=== PATIENT | female | born 1945 | race Caucasian/White ===

== ENCOUNTER 2016-12-23 20:08 | Emergency (ER) | payer OTHER ==
[~2016-12-23] VITALS: Ht 170.2 cm; Wt 85.9 kg
[2016-12-23 20:11] VITALS: Ht 170.2 cm; Wt 85.9 kg
[2016-12-23 20:22] VITALS: O2SAT 96
--- NOTE | 2016-12-23 20:52 | EMERGENCY ROOM VISIT NOTE ---
History Report prepared by Diamond: Tina Dudley Under the Supervision of: Dr. Simeon Jennings M.D. First contact with patient: 20:25 Chief Complaint: RESPIRATORY PROBLEMS Stated Complaint: HARD TO BREATH Nursing Triage Summary: sob worse when moving History of Present Illness The patient is a 71 year old female who presents to the Emergency Room with complaints of persistent shortness of breath that began one week ago. The patient states that she just moved to the area from [place]. She states that over the past week she has been experiencing shortness of breath with exertion. The patient states that six weeks ago she flew 4 hours from [place] to [facility] and then a 1 hour flight from [facility] to [place]. She reports a history of previous abnormal EKGs with previous chest pain, but denies any chest pain today. The patient states that she has not followed up with Cardiology within the past several months. Today, she associates a dull headache with her symptoms. 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 She states that she has had diarrhea for the past three days. The patient denies being a current smoker, noting that she quit 8 years ago. She denies any fever, chills, cough, congestion, chest pain, nausea , vomiting, melena, hematochezia, burning with urination, or lower extremity swelling. Source of History: patient Onset: one week ago Position: other (global) Quality: other (shortness of breath) Timing: other (persistent) Associated Symptoms: + headache (dull), + diarrhea, No fevers, No chills, No cough, No chest pain, No nausea, No vomiting, No melena, No hematochezia, No urinary symptoms Review of Systems See HPI for pertinent positives and negatives. A total of ten systems were reviewed and were otherwise negative. Past Medical & Surgical Medical Problems: (1) Depression (2) Pneumonia Family History Cancer Lung disease Social History Smoking Status: Former Smoker Smokeless Tobacco Use: No Alcohol Use: occasionally Marital Status: Housing Status: lives with significant other Occupation Status: retired Current/Historical Medications Scheduled Albuterol (Ventolin Hfa), 2 PUFFS INH QID Azithromycin (Azithromycin), 1 TAB PO DAILY Citalopram Hydrobromide (Celexa), 20 MG PO DAILY Lactobacillus (Probiotic), 1 CAP PO DAILY Levothyroxine Sodium (Levothyroxine Sodium), 25 MCG PO DAILY Prednisone (Prednisone), 0 PO DAILY [Candibactin], 1 TAB PO DAILY [Womens Essential], 1 PKT PO DAILY Allergies Coded Allergies: No Known Allergies (Unverified , 12/23/16) Physical Exam Vital Signs Date Time Temp Pulse Resp B/P (MAP) Pulse Ox O2 Delivery O2 Flow Rate FiO2 12/23/16 23:41 36.6 76 20 131/75 99 12/23/16 22:13 72 21 12/23/16 22:08 71 15 12/23/16 22:03 72 16 12/23/16 22:01 109/54 12/23/16 21:58 71 11 12/23/16 21:53 73 18 12/23/16 21:48 77 17 12/23/16 21:43 71 26 12/23/16 21:38 72 20 12/23/16 21:33 76 22 12/23/16 21:31 122/70 12/23/16 21:28 70 17 12/23/16 21:23 69 15 12/23/16 21:18 73 17 12/23/16 21:13 70 13 12/23/16 21:08 71 20 12/23/16 21:03 70 26 12/23/16 20:58 70 20 12/23/16 20:53 77 20 12/23/16 20:48 76 17 98 12/23/16 20:43 76 23 97 12/23/16 20:38 76 21 97 12/23/16 20:33 72 16 97 12/23/16 20:31 105/75 12/23/16 20:28 74 17 96 12/23/16 20:27 70 12/23/16 20:23 96 Room Air 12/23/16 20:22 96 Room Air 12/23/16 20:21 127/75 12/23/16 20:11 36.6 72 18 129/82 96 Room Air Physical Exam GENERAL: Awake, alert, well-appearing, in no distress HENT: Normocephalic, atraumatic. Dry mucous membranes. EYES: Normal conjunctiva. Sclera non-icteric. NECK: Supple. No nuchal rigidity. FROM. No JVD. RESPIRATORY: Scant isolated wheezes. otherwise clear. CARDIAC: Regular rate, normal rhythm. Extremities warm and well perfused. Pulses equal. ABDOMEN: Soft, non-distended. No tenderness to palpation. No rebound or guarding. No masses. RECTAL: Deferred. MUSCULOSKELETAL: Chest examination reveals no tenderness. The back is symmetrical on inspection without obvious abnormality. There is no CVA tenderness to palpation. No joint edema. LOWER EXTREMITIES: Calves are equal size bilaterally and non-tender. No edema. No discoloration. NEURO: Normal sensorium. No sensory or motor deficits noted. SKIN: No rash or jaundice noted. Medical Decision & Procedures ER Provider Diagnostic Interpretation: X-ray: Per my interpretation, radiologist review. CHEST ONE VIEW PORTABLE HISTORY: 71 years-old Female acute shortness of breath COMPARISON: None available TECHNIQUE: Portable upright AP view of the chest FINDINGS: Cardiomediastinal and hilar silhouettes are within normal limits. There is atherosclerosis of the aorta. No pneumothorax, pleural effusion or focal airspace consolidation. Bones appear to be grossly intact. IMPRESSION: No acute cardiopulmonary process. The above report was generated using voice recognition software. It may contain grammatical, syntax or spelling errors. Electronically signed by: Cortes Pierre M.D. 12/23/2016 9:19 PM Dictated Date/Time: 12/23/2016 9:18 PM Laboratory Results 12/23/16 20:55 Red Blood Count 4.31, Mean Corpuscular Volume 89.8, Mean Corpuscular Hemoglobin 30.2, Mean Corpuscular Hemoglobin Concent 33.6, Mean Platelet Volume 10.1, Neutrophils (%) (Auto) 43.3, Lymphocytes (%) (Auto) 44.8, Monocytes (%) (Auto) 8.8, Eosinophils (%) (Auto) 2.4, Basophils (%) (Auto) 0.4, Neutrophils # (Auto) 3.04, Lymphocytes # (Auto) 3.15, Monocytes # (Auto) 0.62, Eosinophils # (Auto) 0.17, Basophils # (Auto) 0.03 12/23/16 20:55 Test 12/23/16 20:55 White Blood Count 7.03 K/uL (4.8-10.8) Red Blood Count 4.31 M/uL (4.2-5.4) Hemoglobin 13.0 g/dL (12.0-16.0) Hematocrit 38.7 % (37-47) Mean Corpuscular Volume 89.8 fL (80-100) Mean Corpuscular Hemoglobin 30.2 pg (25-34) Mean Corpuscular Hemoglobin Concent 33.6 g/dl (32-36) Platelet Count 258 K/uL (130-400) Mean Platelet Volume 10.1 fL (7.4-10.4) Neutrophils (%) (Auto) 43.3 % Lymphocytes (%) (Auto) 44.8 % Monocytes (%) (Auto) 8.8 % Eosinophils (%) (Auto) 2.4 % Basophils (%) (Auto) 0.4 % Neutrophils # (Auto) 3.04 K/uL (1.4-6.5) Lymphocytes # (Auto) 3.15 K/uL (1.2-3.4) Monocytes # (Auto) 0.62 K/uL (0.11-0.59) Eosinophils # (Auto) 0.17 K/uL (0-0.5) Basophils # (Auto) 0.03 K/uL (0-0.2) RDW Standard Deviation 44.1 fL (36.4-46.3) RDW Coefficient of Variation 13.4 % (11.5-14.5) Immature Granulocyte % (Auto) 0.3 % Immature Granulocyte # (Auto) 0.02 K/uL (0.00-0.02) Anion Gap 5.0 mmol/L (3-11) Est Creatinine Clear Calc Drug Dose 78.5 ml/min Estimated GFR () 94.5 Estimated GFR (Non- 81.5 BUN/Creatinine Ratio 12.2 (10-20) Calcium Level 8.7 mg/dl (8.5-10.1) Magnesium Level 2.3 mg/dl (1.8-2.4) Troponin I < 0.015 ng/ml (0-0.045) Thyroid Stimulating Hormone (TSH) 4.100 uIu/ml (0.300-4.500) Laboratory results reviewed by me Medications Administered Medications (Trade) Dose Ordered Sig/Dwayne Route Start Time Stop Time Status Last Admin Dose Admin Albuterol/ Ipratropium (Duoneb) 3 ml NOW STAT INH 12/23/16 21:49 12/23/16 21:50 DC 12/23/16 22:18 3 ML Azithromycin (Zithromax Tab) 500 mg NOW STAT PO 12/23/16 22:49 12/23/16 22:52 DC 12/23/16 23:03 500 MG Prednisone (PredniSONE TAB) 60 mg NOW STAT PO 12/23/16 22:49 12/23/16 22:52 DC 12/23/16 23:02 60 MG Albuterol (Ventolin Hfa Inhaler) 2 puffs NOW STAT INH 12/23/16 22:49 12/23/16 22:52 DC 12/23/16 23:03 2 PUFFS ECG Indication: SOB/dyspnea Rate (beats per minute): 73 Rhythm: normal sinus Findings: no acute ischemic change, other (normal axis) ED Course 2038: The patient was evaluated in room A3. A complete history and physical exam was performed. 2126: I reevaluated the patient and she is resting comfortably. 2235: I reevaluated the patient and she is resting comfortably. 9: Ordered DuoNeb 3 ml INH, Albuterol 2 puffs INH, Prednisone 60 mg PO, Zithromax Tab 500 mg PO. 2320: I reevaluated the patient and she is doing well. I discussed the exam findings with her and I discussed the treatment plan. She verbalized complete understanding and agreement. She is ready to go home. Medical Decision I reviewed the patient's past medical history, medications, and the nursing notes as described above. The patient's presentation and history were concerning for Bronchitis, pneumonia , ACS, CHF, PE. The patient is a 71 y/o woman who presents to the ED with c/o of weeks of sob per HPI. On arrival the patient is in NAD. AFVSS. On exam has scant isolated wheezes but otherwise clear. Patient has remote smoking hx, quitting 10 years ago. EKG unremarkable, CXR negative. Trop negative in the setting of constant sx. Heart score 3, low risk. ACS not likely. Patient denies cp, Sating 98% RA and is not tachycardic making PE unlikely. Labs otherwise unremarkable including wbc wnl. Considering the patient's h/o smoking and weeks of sx without improvement sx possibly 2/2 underlying undiagnosed copd/acute bronchitis.Sx improved with neb. Thus, treated for bronchitis/copd with prednisone, lilian cortez. Findings and plan for follow-up d/w patient. Patient agreeable and d/c'd per discharge instructions. Medication Reconcilliation Current Medication List: was personally reviewed by me Blood Pressure Screening Patient's blood pressure: Normal blood pressure Blood pressure disposition: Did not require urgent referral Impression Primary Impression: Bronchitis Scribe Attestation The scribe's documentation has been prepared under my direction and personally reviewed by me in its entirety. I confirm that the note above accurately reflects all work, treatment, procedures, and medical decision making performed by me. Departure Information Dispostion Home / Self-Care Prescriptions Albuterol (Ventolin Hfa) 60 Puffs/5400 Mcg Aers 2 PUFFS INH QID for 5 Days, #1 INHALER Prov: Simeon Jennings M.D. 12/23/16 Prednisone (Prednisone) 20 Mg Tab 0 PO DAILY for 4 Days, #12 TAB 3 TABS DAILY FOR 2 DAYS, THEN 2 TABS DAILY FOR 2 DAYS, THEN 1 TAB DAILY FOR 2 DAYS, THEN 1/2 TAB DAILY FOR 2 DAYS. Prov: Simeon Jennings M.D. 12/23/16 Azithromycin (Azithromycin) 250 Mg Tab 1 TAB PO DAILY for 4 Days, #4 TABS Prov: Simeon Jennings M.D. 12/23/16 Referrals No Doctor, Assigned (PCP) Forms HOME CARE DOCUMENTATION FORM, IMPORTANT VISIT INFORMATION, WORK / SCHOOL INSTRUCTIONS Patient Instructions Bronchitis Acute, My [facility] Additional Instructions Please follow up with your primary care physician in the next 1-3 days. Otherwise, your exam, chest x-ray, EKG, lab results did not show signs of an emergent condition. Take your antibiotic, azithromycin, as directed. Prednisone daily as directed. Take 2 puffs of her albuterol inhaler every 4-6 hours for the next 2 days and as needed thereafter. Return to the emergency department for worsening symptoms as described in the accompanying instructions.
[2016-12-23 21:13] LABS: BASO % 0.4 %; BASO ABS # 0.03 K/uL (0-0.2); COMPLETE YES; EOS % 2.4 %; HEMATOCRIT 38.7 % (37-47); IG% 0.3 %; LYMPH % 44.8 %; LYMPH ABS # 3.15 K/uL (1.2-3.4); MEAN CELL VOLUME 89.8 fL (80-100); MEAN CORPUSCULAR HEMOGLOBIN 30.2 pg (25-34); MEAN CORPUSCULAR HGB CONC 33.6 g/dl (32-36); MEAN PLATELET VOLUME 10.1 fL (7.4-10.4); MONO % 8.8 %; NEUT % 43.3 %; PLATELET COUNT 258 K/uL (130-400); RED BLOOD COUNT 4.31 M/uL (4.2-5.4); WHITE BLOOD COUNT 7.03 K/uL (4.8-10.8)
--- NOTE | 2016-12-23 21:20 | DIAGNOSTIC IMAGING REPORT ---
CHEST ONE VIEW PORTABLE HISTORY: 71 years-old Female acute shortness of breath COMPARISON: None available TECHNIQUE: Portable upright AP view of the chest FINDINGS: Cardiomediastinal and hilar silhouettes are within normal limits. There is atherosclerosis of the aorta. No pneumothorax, pleural effusion or focal airspace consolidation. Bones appear to be grossly intact. IMPRESSION: No acute cardiopulmonary process. The above report was generated using voice recognition software. It may contain grammatical, syntax or spelling errors. Electronically signed by: Cortes Pierre M.D. 12/23/2016 9:19 PM Dictated Date/Time: 12/23/2016 9:18 PM
[2016-12-23] MEDS ORDERED: [UNRECOGNIZED DRUG - OTHER] PO (21:22)
[2016-12-23] MEDS ORDERED: LEVO25TA5 PO (21:22)
[2016-12-23] MEDS ORDERED: [UNRECOGNIZED DRUG - OTHER] PO (21:22)
[2016-12-23] MEDS ORDERED: LACT1CAP6 PO (21:22)
[2016-12-23] MEDS ORDERED: CITA20TA9 PO (21:22)
[2016-12-23] MEDS ORDERED: ONDANSETRON INJ 2 MG/ML 2 ML VIAL IV STA (21:26)
[2016-12-23] MEDS ORDERED: FAMOTIDINE 20MG/102 ML D5W IV STA (21:26)
[2016-12-23 21:29] LABS: BLOOD UREA NITROGEN 9 mg/dl (7-18); BUN/CREATININE RATIO 12.2 (10-20); CALCIUM 8.7 mg/dl (8.5-10.1); CARBON DIOXIDE 26 mmol/L (21-32); CHLORIDE 106 mmol/L (98-107); CREATININE 0.74 mg/dl (0.60-1.20); GLUCOSE 93 mg/dl (70-99); MAGNESIUM 2.3 mg/dl (1.8-2.4); POTASSIUM 3.9 mmol/L (3.5-5.1); SODIUM 137 mmol/L (136-145)
[2016-12-23] MEDS ORDERED: ALBUT/IPRATROP 3MG/0.5MG NEB 3 ML VIAL INH STA (21:49)
[2016-12-23] MEDS ORDERED: ALBUTEROL HFA 8 GM INHALER INH STA (22:49)
[2016-12-23] MEDS ORDERED: AZITHROMYCIN 250 MG TAB PO STA (22:49)
[2016-12-23] MEDS ORDERED: PRED20TA PO (23:31)
[2016-12-23] MEDS ORDERED: ZTHM250 PO (23:31)
[2016-12-23] MEDS ORDERED: PRVHFAIN INH (23:32)
[2016-12-23 23:41] VITALS: BP 131/75; PULSE 76; TEMP 36.6; O2SAT 99
== END 2016-12-23 23:41 | disposition home or self-care (01) ==
LOC: C.EDB 20:10 → C.EDA 23:41
DX: J40 Bronchitis, not specified as acute or chronic (principal); F32.9 Major depressive disorder, single episode, unspecified; Z87.01 Personal history of pneumonia (recurrent); Z80.9 Family history of malignant neoplasm, unspecified; Z83.6 Family history of other diseases of the respiratory system; Z87.891 Personal history of nicotine dependence; Z79.899 Other long term (current) drug therapy

== ENCOUNTER 2017-03-30 15:15 | Emergency (ER) | payer OTHER ==
[~2017-03-30] VITALS: Ht 170.2 cm; Wt 90.0 kg
[~2017-03-30 15:15] MED LIST: AZIT-57 PO; CITA20TA9 PO; LACT1CAP6 PO; LEVO25TA5 PO; [UNRECOGNIZED DRUG - OTHER] PO; [UNRECOGNIZED DRUG - OTHER] PO
[2017-03-30 15:25] VITALS: TEMP 36.8; Ht 170.2 cm; Wt 90.0 kg
[2017-03-30] MEDS ORDERED: PSEUDOEPHEDRINE HCL 30 MG TAB PO STA (15:40)
[2017-03-30] MEDS ORDERED: ALBUTEROL HFA 8 GM INHALER INH ONE (15:45)
--- NOTE | 2017-03-30 15:57 | EMERGENCY ROOM VISIT NOTE ---
History Report prepared by Diamond: Douglas Bucio Under the Supervision of: Dr. Norman Rivera M.D. First contact with patient: 15:32 Chief Complaint: COUGH Stated Complaint: COUGHING, PHLEGM, EAR PAIN History of Present Illness The patient is a 71 year old female who presents to the Emergency Room with complaints of a persistent cough beginning four days ago. The patient's cough produces a "yanes" sputum. She also complains of left ear pain. She states that she woke up with her symptoms. The patient notes that she was in [place] and flew home the day she began feeling sick. She states that her ears hurt more following the flight. She states that her ear pain has since resolved. The patient states "my ears feel plugged up". She states that she has been sweating and experiencing chills. She states that her throat has been "raspy" as well. The patient denies any known fever. She has a history of recurrent pneumonia. Source of History: patient Onset: Four days ago Quality: other (cough producing "yanes" sputum) Timing: other (persistent) Associated Symptoms: No fevers Note: The patient also complains of left ear pain. Review of Systems See HPI for pertinent positives & negatives. A total of 10 systems reviewed and were otherwise negative. Past Medical & Surgical Medical Problems: (1) Depression (2) Pneumonia Family History Cancer Lung disease Social History Smoking Status: Never Smoker Alcohol Use: occasionally Marital Status: Housing Status: lives with significant other Occupation Status: retired Current/Historical Medications Scheduled Albuterol Hfa (Ventolin Hfa), 3 PUFFS INH Q6H Amoxicillin (Amoxil), 500 MG PO TID Azithromycin (Azithromycin), 1 TAB PO DAILY Citalopram Hydrobromide (Celexa), 20 MG PO DAILY Lactobacillus (Probiotic), 1 CAP PO DAILY Levothyroxine Sodium (Levothyroxine Sodium), 25 MCG PO DAILY Pseudoephedrine Hcl (Sudafed Nasal Decongestan), 1 TAB PO Q6 [Candibactin], 1 TAB PO DAILY [Womens Essential], 1 PKT PO DAILY Scheduled PRN Hydrocodone W/ Homatropine (Hycodan 5/1.5MG 5 Ml), 5-10 ML PO Q4H PRN for Cough Allergies Coded Allergies: No Known Allergies (Unverified , 12/23/16) Physical Exam Vital Signs Date Time Temp Pulse Resp B/P (MAP) Pulse Ox O2 Delivery O2 Flow Rate FiO2 03/30/17 16:42 79 16 148/88 97 03/30/17 16:00 Room Air 03/30/17 15:25 36.8 73 18 137/87 96 Room Air Physical Exam GENERAL: Patient is in no acute distress. HEENT: No acute trauma, normocephalic atraumatic, mucous membranes moist, no nasal congestion, no scleral icterus. Left ear is reddened with fluid consistent with infection. Right TM normal. No throat erythema or exudate. NECK: No stridor, no adenopathy, no meningismus, trachea is midline. LUNGS: Clear to auscultation bilaterally, no wheeze, no rhonchi, breath sounds equal. HEART: Without murmurs gallops or rubs, regular rate and rhythm. ABDOMEN: Soft, nontender, bowel sounds positive, no hernias, no peritonitis. EXTREMITIES: No cyanosis or edema, full range of motion of all the joints without pain or difficulty, no signs for acute trauma. NEUROLOGIC: Oriented x 3, no acute motor or sensory deficits, no focal weakness. SKIN: No rash, no jaundice, no diaphoresis. Medical Decision & Procedures ER Provider Diagnostic Interpretation: Radiology results as stated below per my review and radiologist interpretation: CHEST ONE VIEW PORTABLE FINDINGS: Atherosclerosis of aortic arch. Cardiac silhouette normal in size. Lungs and pleural spaces clear. Osseous structures normal. Upper abdomen normal. IMPRESSION: 1. No acute cardiopulmonary disease. Electronically signed by: Bhavin White M.D. 03/30/2017 4:03 PM Medications Administered Medications (Trade) Dose Ordered Sig/Dwayne Route Start Time Stop Time Status Last Admin Dose Admin Albuterol (Ventolin Hfa Inhaler) 3 puffs NOW ONCE INH 03/30/17 15:45 03/30/17 15:46 DC 03/30/17 15:54 3 PUFFS Pseudoephedrine HCl (Sudafed Tab) 30 mg NOW STAT PO 03/30/17 15:40 03/30/17 15:42 DC 03/30/17 15:54 30 MG Amoxicillin (Amoxil Cap) 500 mg NOW STAT PO 03/30/17 16:23 03/30/17 16:24 DC 03/30/17 16:41 500 MG ED Course 1533: The patient was evaluated in room A2. A complete history and physical exam was performed. 1540: Ordered Sudafed Tab 30 mg PO. 1545: Ordered Ventolin Hfa Inhaler 3 puffs INH. 1623: Ordered Amoxil Cap 500 mg PO. 1630: Reevaluated the patient. Discussed results and discharge instructions: she verbalized understanding and agreement. The patient is ready for discharge. Medical Decision The patient is a 71 year old female who presents to the ED with complaints of cough and left ear pain. Differential diagnoses considered include bronchitis, pneumonia, URI, otitis media, pharyngitis, and common cold. The patient presents with cough and cold-like symptoms. She also has some left ear pain. She had concerns for pneumonia. Chest film does not show pneumonia, CHF or mediastinal widening. On exam, she was not hypoxic or febrile, she was not toxic. She did have a left otitis media. The patient was given albuterol via MDI, oral Sudafed and oral amoxicillin. The patient is being discharged on amoxicillin for her left otitis media. Albuterol, Hycodan and Sudafed for her acute bronchitis. [place] Drug Monitoring Program Search Results: patient reviewed within database, no issues identified Medication Reconcilliation Current Medication List: was personally reviewed by me Blood Pressure Screening Patient's blood pressure: Elevated blood pressure Blood pressure disposition: Elevated BP felt to be situational Impression Primary Impression: Left otitis media Additional Impression: Acute bronchitis Scribe Attestation The scribe's documentation has been prepared under my direction and personally reviewed by me in its entirety. I confirm that the note above accurately reflects all work, treatment, procedures, and medical decision making performed by me. Departure Information Dispostion Home / Self-Care Prescriptions Pseudoephedrine Hcl (SUDAFED NASAL DECONGESTAN) 30 Mg Tab 1 TAB PO Q6 for 5 Days, #20 TAB Prov: Norman Rivera M.D. 03/30/17 Hydrocodone W/ Homatropine (HYCODAN 5/1.5MG 5 ML) 1 Syp Syp 5-10 ML PO Q4H Y for Cough, #120 ML Prov: Norman Rivera M.D. 03/30/17 Amoxicillin (AMOXIL) 500 Mg Tab 500 MG PO TID, #30 TAB Prov: Norman Rivera M.D. 03/30/17 Albuterol Hfa (VENTOLIN HFA) 200 Puffs/78417 Mcg Aers 3 PUFFS INH Q6H, #1 INHALER Prov: Norman Rivera M.D. 03/30/17 Referrals No Doctor, Assigned (PCP) Forms HOME CARE DOCUMENTATION FORM, IMPORTANT VISIT INFORMATION Patient Instructions My [facility] Additional Instructions amoxicilling 3x per day for 10 days albuterol 3 puffs every 6 hours sudafed every 6 hours for congestion hycodan 1 tsp every 4 hours for cough rest stay hydrated return for worsening symptoms or if not improving Problem Qualifiers
--- NOTE | 2017-03-30 16:04 | DIAGNOSTIC IMAGING REPORT ---
CHEST ONE VIEW PORTABLE CLINICAL HISTORY: 71 years-old Female presenting with cough. TECHNIQUE: Portable upright AP view of the chest was obtained. COMPARISON: 12/23/2016. FINDINGS: Atherosclerosis of aortic arch. Cardiac silhouette normal in size. Lungs and pleural spaces clear. Osseous structures normal. Upper abdomen normal. IMPRESSION: 1. No acute cardiopulmonary disease. Electronically signed by: Bhavin White M.D. 03/30/2017 4:03 PM Dictated Date/Time: 03/30/2017 4:03 PM
[2017-03-30] MEDS ORDERED: AMOXICILLIN 250 MG CAP PO STA (16:23)
[2017-03-30] MEDS ORDERED: HYDR5SYP11 PO (16:36)
[2017-03-30] MEDS ORDERED: AMOX500T3 PO (16:36)
[2017-03-30] MEDS ORDERED: PSEU30TA3 PO (16:36)
[2017-03-30] MEDS ORDERED: VNTHFA/IN INH (16:36)
[2017-03-30 16:42] VITALS: BP 148/88; PULSE 79; O2SAT 97
== END 2017-03-30 16:44 | disposition home or self-care (01) ==
LOC: C.EDB 15:17 → C.EDA 16:44
DX: H66.92 Otitis media, unspecified, left ear (principal); J20.9 Acute bronchitis, unspecified; F32.9 Major depressive disorder, single episode, unspecified; Z87.01 Personal history of pneumonia (recurrent); Z80.9 Family history of malignant neoplasm, unspecified; Z83.6 Family history of other diseases of the respiratory system; Z79.899 Other long term (current) drug therapy

== ENCOUNTER 2017-05-16 17:36 | Emergency (ER) | payer OTHER ==
[~2017-05-16] VITALS: Ht 170.2 cm; Wt 91.3 kg
[~2017-05-16 17:36] MED LIST changes: +AMOX500T3 PO; +VNTHFA/IN INH
[2017-05-16 17:51] VITALS: TEMP 36.8; Ht 170.2 cm; Wt 91.3 kg
[2017-05-16] MEDS ORDERED: ATOR-22 PO (18:24)
[2017-05-16] MEDS ORDERED: MULT-513 PO (18:24)
[2017-05-16] MEDS ORDERED: ASPI81TA28 PO (18:24)
--- NOTE | 2017-05-16 19:09 | DIAGNOSTIC IMAGING REPORT ---
CHEST 2 VIEWS ROUTINE CLINICAL HISTORY: 71 years-old Female presenting with cough eval for pna. TECHNIQUE: PA and lateral views of the chest were obtained. COMPARISON: 03/30/2017. FINDINGS: Atherosclerosis of the aortic arch. Cardiac silhouette normal in size. Prominent nipple shadow at the right lung base. Lungs and pleural spaces clear. Degenerative changes of the thoracic spine. Upper abdomen normal. IMPRESSION: 1. No acute cardiopulmonary disease. Electronically signed by: Bhavin White M.D. 05/16/2017 7:08 PM Dictated Date/Time: 05/16/2017 7:07 PM
--- NOTE | 2017-05-16 19:34 | EMERGENCY ROOM VISIT NOTE ---
History Report prepared by Diamond: Sharon Byers Under the Supervision of: Dr. Reuben Banks M.D. First contact with patient: 18:03 Chief Complaint: FLU LIKE SX Stated Complaint: COUGH, SORE THROAT, STUFFY NOSE, NAUSEA History of Present Illness The patient is a 71 year old female who presents to the Emergency Room with complaints of worsening flu like symptoms starting a few weeks ago. The patient states that she was here a month ago for similar symptoms, but with pain in her left ear. She states that she got somewhat better but her symptoms got worse after [place]. She states that she had a sore throat intermittently. She denies sore throat currently. The patient states that four days ago she started to develop a cough and right ear pain. She complains of being congested. She denies a fever. She complains of a loss of appetite and blood when she blows her nose. The patient notes that she gets pneumonia easily. She reports that she felt better today than the past two days. Source of History: patient Onset: a few weeks ago Position: other (global) Quality: other (flulike symptoms) Timing: worsening Associated Symptoms: + sorethroat, + cough, No fevers, No chest pain, No SOB Note: The patient complains of right ear pain, congestion, a loss of appetite, and blood when she blows her nose. Review of Systems See HPI for pertinent positives & negatives. A total of 10 systems reviewed and were otherwise negative. Past Medical & Surgical Medical Problems: (1) Depression (2) Pneumonia Family History Cancer Lung disease Social History Smoking Status: Never Smoker Alcohol Use: occasionally Marital Status: Housing Status: lives with significant other Occupation Status: retired Current/Historical Medications Scheduled Albuterol Hfa (Ventolin Hfa), 3 PUFFS INH Q6H Amoxicillin (Amoxil), 500 MG PO TID Aspirin (Aspirin Ec), 81 MG PO HS Atorvastatin (Lipitor), 20 MG PO HS Azithromycin (Azithromycin), 1 TAB PO DAILY Citalopram Hydrobromide (Celexa), 20 MG PO DAILY Lactobacillus (Probiotic), 1 CAP PO DAILY Multivitamins/Minerals (Mvi With Minerals), 1 TAB PO DAILY [Candibactin], 1 TAB PO DAILY Allergies Coded Allergies: No Known Allergies (Unverified , 05/16/17) Physical Exam Vital Signs Date Time Temp Pulse Resp B/P (MAP) Pulse Ox O2 Delivery O2 Flow Rate FiO2 05/16/17 17:51 36.8 75 17 137/78 97 Room Air Physical Exam Constitutional: Vital signs reviewed. Eyes: Pupils are equal round reactive to light. Conjunctiva are noninjected. ENT: Pharynx is clear without erythema or exudate. Mucous membranes are moist. Neck supple without meningeal signs. Tympanic membranes are clear bilaterally. No cervical lymphadenopathy. Respiratory: Clear to auscultation bilaterally. Breath sounds are equal bilaterally. Cardiovascular: Regular rate and rhythm. No rubs or gallops. GI: Soft, nondistended and nontender. Bowel sounds are present. Musculoskeletal: No peripheral edema. No lower extremity tenderness. Integumentary: No cyanosis. Neurological: The patient is awake and alert. No focal deficits. Psychiatric: Normal affect. Medical Decision & Procedures ER Provider Diagnostic Interpretation: Radiology results as stated below per my review and the radiologist's interpretation: CHEST 2 VIEWS ROUTINE CLINICAL HISTORY: 71 years-old Female presenting with cough eval for pna. TECHNIQUE: PA and lateral views of the chest were obtained. COMPARISON: 03/30/2017. FINDINGS: Atherosclerosis of the aortic arch. Cardiac silhouette normal in size. Prominent nipple shadow at the right lung base. Lungs and pleural spaces clear. Degenerative changes of the thoracic spine. Upper abdomen normal. IMPRESSION: 1. No acute cardiopulmonary disease. Electronically signed by: Bhavin White M.D. 05/16/2017 7:08 PM Dictated Date/Time: 05/16/2017 7:07 PM ED Course 1805: The patient was evaluated in room C6. A complete history and physical exam was performed. 1920: Upon reevaluation, the patient appeared to have improvement of her symptoms. I discussed tonight's findings with the patient. She verbalized agreement of the treatment plan. The patient was discharged home. Medical Decision This is a 71-year-old female who presents with flulike symptoms. Differential diagnosis includes viral syndrome, pharyngitis, bronchitis, pneumonia. I did perform a limited focused review of portions of the patient's old chart on the electronic medical record. The patient was here March 30 for Bronchitis and Otitis Media. She was discharged with Amoxicillin. I did evaluate the patient as noted above. The patient is well-appearing on my examination. She has been sick since last month. She did feel better for a period of time but then got sick again after [place]. Today she states she is feeling better than she did over the past 2 days. She complains of a sore throat but has no signs of pharyngitis. She states the sore throat is intermittent and is suspected may be related to her cough. She was mostly concerned about pneumonia as she has a history of developing pneumonia easily. I did order and personally review the patient's chest x-ray as described above. There is no evidence of pneumonia. I did discuss the test results with the patient. I did recommend she follow up with her doctor next week. She was advised to return for any worsening symptoms or any new concerning symptoms as described below. She was discharged in good condition. Medication Reconcilliation Current Medication List: was personally reviewed by me Blood Pressure Screening Patient's blood pressure: Elevated blood pressure Blood pressure disposition: Referred to PCP Impression Primary Impression: Acute bronchitis Scribe Attestation The scribe's documentation has been prepared under my direct and personally reviewed by me in its entirety. I confirm that the note above accurately reflects all work, treatment, procedures, and medical decision making performed by me. Departure Information Dispostion Home / Self-Care Referrals No Doctor, Assigned (PCP) Forms HOME CARE DOCUMENTATION FORM, IMPORTANT VISIT INFORMATION Patient Instructions My [facility] Additional Instructions You have been examined and treated today on an emergency basis only. This is not a substitute for, or an effort to provide, complete comprehensive medical care. It is impossible to recognize and treat all injuries or illnesses in a single emergency department visit. It is therefore important that you follow up closely with your physician. Call as soon as possible for an appointment. Return for worsening symptoms or if you develop high fever, vomiting, chest pain , shortness of breath or any other concerning symptoms. Problem Qualifiers Primary Impression: Acute bronchitis Bronchitis organism: unspecified organism Qualified Codes: J20.9 - Acute bronchitis, unspecified
[2017-05-16 19:43] VITALS: BP 120/74; PULSE 67; O2SAT 99
== END 2017-05-16 19:44 | disposition home or self-care (01) ==
LOC: C.EDB 17:37 → C.EDC 19:44
DX: J20.9 Acute bronchitis, unspecified (principal); F32.9 Major depressive disorder, single episode, unspecified; Z79.82 Long term (current) use of aspirin